=== PATIENT | male | born 1970 | race Caucasian/White ===

== ENCOUNTER 2017-01-29 05:12 | Emergency (ER) | payer OTHER | END 2017-01-29 06:45 | disposition home or self-care (01) | LOC: ER 05:12 | DX: B34.9 Viral infection, unspecified (principal); M54.5 Low back pain; G89.29 Other chronic pain; J44.9 Chronic obstructive pulmonary disease, unspecified; I10 Essential (primary) hypertension; F41.9 Anxiety disorder, unspecified; F17.210 Nicotine dependence, cigarettes, uncomplicated | CPT/HCPCS: 36415; 87502; 87651; 96372; J1885 ==

== ENCOUNTER 2017-03-15 00:13 | Emergency (ER) | payer OTHER | END 2017-03-15 02:08 | disposition home or self-care (01) | LOC: ER 00:13 | DX: K64.4 Residual hemorrhoidal skin tags (principal); J44.9 Chronic obstructive pulmonary disease, unspecified; F41.9 Anxiety disorder, unspecified; I10 Essential (primary) hypertension; F17.210 Nicotine dependence, cigarettes, uncomplicated; Z79.899 Other long term (current) drug therapy ==